=== PATIENT | female | born 1980 | race African-American/Black ===

== ENCOUNTER 2016-12-23 19:19 | Emergency (ER) | payer BC ==
[~2016-12-23] VITALS: Ht 172.7 cm; Wt 78.0 kg
[~2016-12-23 19:19] MED LIST: AMOX875T PO; DICL50TA3 PO
[2016-12-23 19:20] VITALS: BP 161/84; PULSE 66; RESP 16; TEMP 98.7; O2SAT 100
== END 2016-12-23 20:30 | disposition left against medical advice (07) ==
LOC: NED 19:19
DX: N94.9 Unspecified condition associated with female genital organs and menstrual cycle (principal)
CPT/HCPCS: 99281